=== PATIENT | male | born 1980 | race Two or more races ===

== ENCOUNTER → 2024-07-14 | Outpatient (CLI) | payer MEDICAID, SELFPAY ==
--- NOTE | 2024-07-14 09:30 | XR_ITS ---
Examination: CT abdomen, without intravenous contrast. CT abdomen, with intravenous contrast. Sagittal and coronal 2-D reconstructions. Time of exam:Thyroiditis 2024 0953 hours INDICATIONS: Right upper abdominal pain beginning one year ago CTDI: vol (mGy) 11.3 DLP: (mGycm) 367 Technique: Multiple 3.0 mm axial noncontrast images of the abdomen have been obtained. Multiple 3.0 mm axial images post administration 60 cc Isovue-370 intravenous contrast have been obtained. Sagittal and coronal 3-D reconstructions have been obtained. Low dose protocols were performed. One or more of the following dose reduction techniques were used; automated exposure control, adjustment of the mA and/or KV according to patient size, use of iterative reconstruction technique. Findings: Multiple low-density liver lesions again depicted consistent with cysts Significant patient motion No pancreatic or splenic mass No hydronephrosis Aorta normal size No ascites No bowel obstruction No gallstones IMPRESSION: Study limited by patient motion Recommend repeating the hepatic sonography to confirm liver cysts and to better assess the gallbladder No renal or ureteral calculi, no hydronephrosis
== END | disposition home or self-care (01) ==
LOC: CCTX 09:18
PROVIDERS: Referring Provider Physician Assistant; Visit Provider Physician Assistant
DX: N28.1 Cyst of kidney, acquired (principal)
CPT/HCPCS: 74170; A4649; Q9967

== ENCOUNTER → 2024-08-05 | Outpatient (CLI) | payer MEDICAID, SELFPAY ==
--- NOTE | 2024-08-05 09:45 | XR_ITS ---
Examination: MRI lumbar spine without contrast Date and time of exam: August 05, 2024 at 1043 hrs. Indications: Low back pain radiating down the right leg paresthesias 2 years Technique: Multiple MRI axial and sagittal sections lumbar spine. Sagittal T2-weighted images, TR 3500, TE 118 T1 weighted transverse sections, TR 688 T8.5, T2-weighted sagittal sections T1 weighted sagittal sections TR 621, TE 30 T2 axial sections, TR 4, 190, TE 84. Findings: Minimal anterolisthesis L3 on L2 No lumbar fracture Diffuse lumbar disc desiccation Mild to moderate diffuse lumbar disc narrowing most prominent L1-L2, L2-L3 L5-S1 no disc protrusion L4-L5 2 mm central lumbar disc bulge L3-L4 no disc protrusion L2-L3 3 mm central lumbar disc bulge L1-L2 2 mm central lumbar disc bulge No ganglionic compression Impression: Mild to moderate diffuse lumbar degenerative disc disease No significant acquired spinal stenosis
== END | disposition home or self-care (01) ==
PROVIDERS: PCP Physician Assistant; Referring Provider Physician Assistant; Visit Provider Physician Assistant
DX: M54.9 Dorsalgia, unspecified (principal); M51.369 Other intervertebral disc degeneration, lumbar region without mention of lumbar back pain or lower extremity pain
CPT/HCPCS: 72148

== ENCOUNTER 2024-09-01 13:00 | Outpatient (RCR) | payer MEDICAID, SELFPAY ==
--- NOTE | 2024-08-11 13:39 | PT.OIERPT ---
PT OP Initial Eval Patient Information Outpatient Physical Therapy Treatment Date: 08/11/24 Visit Reasons: dorsalgia Medical Diagnosis: M54.9 Treatment Dx #1: LBP with R LE radiculopathy Start of Care: 08/11/24 Date of Onset: 1.5 yrs ago Smoking Status Smoking Status: Current some day smoker Cessation Counseling Provided: LARRY was advised that quitting smoking is the single most important factor to protect the health of themselves and their family. Discussed the benefits of quitting smoking with patient. Encouraged patient to quit smoking and provided Cessation assistance materials and resources. Tobacco Use: Cigarette Years smoked: 25 Are you interested in quitting?: Yes Would you like additional Smoking Cessation Counseling?: No Initial Assessment Subjective: Pt is 44 yr old male c/o LBP that runs into the R LE. The R side hurts more than the L and the left side is where he had sx to remove a skin flap for craniotomy in 2020. The LBP limits sitting >20 mins, prolonged walking and lifting tolerances. PMH: L shoulder sx, craniotomy 2020 Imaging: MRI in EMR L4-L5 2 mm central lumbar disc bulge, L3-L4 no disc protrusion, L2-L3 3 mm central lumbar disc bulge ,L1-L2 2 mm central lumbar disc bulge, Pt goal: to get rid of the LBP Objective: Trunk ArOM: ? B SB 50% of normal with pain ? Extension: 20% with pain around L4-5, L5-S1 ? Flexion: 12 from floor with LBP ? B rotation: 60% with pain ? Tone: increased of R side paraspinals ? TTP: moderate paraspinals L2-S1 on R side ? Neuro: B SLR: negative Assessment: Pt presents with trunk flexion sensitivity and overlying myofascial pain ? and TTP around L3-S1 consistent with ? lower lumbar disc bulge(s) with radiculopathy. Pt requires skilled therapy in order to decrease ? pain and improve sitting/standing tolerance and has fair rehab potential. Eval ?followed by [facility] printout. [employer] Goals ??? 1. Ind with [facility] ? 2. Improved sitting/standing tolerance to 40 minutes with <=4/10 LBP ? 3. Decreased lower paraspinal TTP from mod to min 4. Improved HH chore tolerance to at least 30 minutes with <=3/10 LBP and no ?increase in LE ssx ? Treatment Plan ?1. Manual therapy ? 2. Therex ? 3. Modalities as indicated, moist heat, ice, estim, mechanical traction Frequency and Duration: 1-2x a week for 12 sessions plus evaluation Certification Dates: 08/11/24 to 11/11/24 Procedure Charges OP PT Eval Mod Complex 30 minutes: Yes
--- NOTE | 2024-08-18 13:10 | PT.ODAYNRPT ---
PT Outpatient Daily Note OP Daily Note Outpatient Physical Therapy Treatment Date: 08/18/24 Visit Reasons: dorsalgia Subjective: Same as time of evaluation Objective: See F/S for therex Assessment: Pt tends to round his back with most movements Plan: Continue per POC Length of Time (minutes) of Treatment: 30 Minutes Procedure Charges Therapeutic Exercise 30 minutes: Yes
--- NOTE | 2024-08-25 13:39 | PT.ODAYNRPT ---
PT Outpatient Daily Note OP Daily Note Outpatient Physical Therapy Treatment Date: 08/25/24 Visit Reasons: dorsalgia Subjective: Pt c/o R flank pain today Objective: See F/S for therex Assessment: Good abdominal/core activation with therex but Pt tends to round his back with most movements Plan: Continue per POC Length of Time (minutes) of Treatment: 30 Minutes
--- NOTE | 2024-09-01 14:06 | PT.ODAYNRPT ---
PT Outpatient Daily Note OP Daily Note Outpatient Physical Therapy Treatment Date: 09/01/24 Visit Reasons: dorsalgia Subjective: Pt c/o LBP and pain on his trunk. Objective: Please see flow sheet for ther ex list Assessment: Added interventions completed with minimal pain but pt determined to complete interventions. Plan: Continue with pOC. Length of Time (minutes) of Treatment: 30 Minutes Procedure Charges Therapeutic Exercise 30 minutes: Yes
== END 2024-09-06 23:59 | disposition home or self-care (01) ==
LOC: CPTX 13:00
PROVIDERS: PCP Physician Assistant; Referring Provider Physician Assistant; Visit Provider Physician Assistant
DX: M54.16 Radiculopathy, lumbar region (principal); Z71.6 Tobacco abuse counseling; F17.210 Nicotine dependence, cigarettes, uncomplicated
CPT/HCPCS: 97110; 97162

== ENCOUNTER 2024-09-29 09:30 | Outpatient (RCR) | payer MEDICAID, SELFPAY ==
--- NOTE | 2024-09-08 09:36 | PT.ODAYNRPT ---
PT Outpatient Daily Note OP Daily Note Outpatient Physical Therapy Treatment Date: 09/08/24 Visit Reasons: back pain Subjective: Pt c/o R flank pain Objective: See F/S for therex Assessment: Good abdominal/core activation with therex but Pt tends to round his back with most movements Plan: Continue per POC Length of Time (minutes) of Treatment: 30 Minutes Procedure Charges Therapeutic Exercise 30 minutes: Yes
--- NOTE | 2024-09-15 10:10 | PT.ODAYNRPT ---
PT Outpatient Daily Note OP Daily Note Outpatient Physical Therapy Treatment Date: 09/15/24 Visit Reasons: back pain Subjective: Pt c/o R flank pain Objective: See F/S for therex Assessment: Good abdominal/core activation with therex but Pt tends to round his back with most movements Plan: Continue per POC Length of Time (minutes) of Treatment: 30 Minutes Procedure Charges Therapeutic Exercise 30 minutes: Yes
--- NOTE | 2024-09-22 09:49 | PT.ODAYNRPT ---
PT Outpatient Daily Note OP Daily Note Outpatient Physical Therapy Treatment Date: 09/22/24 Visit Reasons: back pain Subjective: Pt c/o continued R flank pain Objective: See F/S for therex Assessment: Good abdominal/core activation with therex but Pt tends to round his back with most movements. Difficulty with bird dog exercise. Plan: Continue per POC Length of Time (minutes) of Treatment: 30 Minutes Procedure Charges Therapeutic Exercise 30 minutes: Yes
--- NOTE | 2024-09-29 10:06 | PT.ODAYNRPT ---
PT Outpatient Daily Note OP Daily Note Outpatient Physical Therapy Treatment Date: 09/29/24 Visit Reasons: back pain Subjective: Pt c/o continued R flank pain Objective: See F/S for therex Assessment: Good abdominal/core activation with therex but Pt tends to round his back with most movements. Difficulty with bird dog exercise. Plan: Continue per POC Length of Time (minutes) of Treatment: 30 Minutes Procedure Charges Therapeutic Exercise 30 minutes: Yes
== END 2024-10-06 23:59 | disposition home or self-care (01) ==
LOC: CPTX 09:30
PROVIDERS: PCP Physician Assistant; Referring Provider Physician Assistant; Visit Provider Physician Assistant
DX: M54.16 Radiculopathy, lumbar region (principal)
CPT/HCPCS: 97110

== ENCOUNTER 2024-11-03 08:30 | Outpatient (RCR) | payer MEDICAID, SELFPAY ==
--- NOTE | 2024-10-13 11:44 | PT.ODAYNRPT ---
PT Outpatient Daily Note OP Daily Note Outpatient Physical Therapy Treatment Date: 10/13/24 Visit Reasons: Low back pain Subjective: Pt reports neck has been stiff and painful for 4 days now, slept wrong and woke up with a stiff neck. Pt reports come progress with LBP. Objective: Please see flow sheet for ther ex list. Assessment: Pt instructed on bug exercise, pt demonstrated increase lumbar lordosis and poor abdominal recruitment. Pt instructed on PPT exercise then incorporated that into bugs exercise resulting in imporved technique. Plan: Continue with POC. Length of Time (minutes) of Treatment: 30 Minutes Procedure Charges Therapeutic Exercise 30 minutes: Yes
--- NOTE | 2024-10-27 09:01 | PT.ODAYNRPT ---
PT Outpatient Daily Note OP Daily Note Outpatient Physical Therapy Treatment Date: 10/27/24 Visit Reasons: Low back pain Subjective: Pt reports increase LBP on R side today. Objective: Please see flow sheet for ther ex list. Assessment: Added interventions completed with good tolerance. Plan: Continue with pOC. Length of Time (minutes) of Treatment: 30 Minutes Procedure Charges Therapeutic Exercise 30 minutes: Yes
--- NOTE | 2024-11-03 10:22 | PT.ODAYNRPT ---
PT Outpatient Daily Note OP Daily Note Outpatient Physical Therapy Treatment Date: 11/03/24 Visit Reasons: Low back pain Subjective: Pt reports increased LBP on R side today. Objective: See F/S for therex TENS: x7' R side of L/S Assessment: Good response to repeated prone lumbar extension to relieve pain but he tends to round the L/S which may aggravate ssx. Plan: Continue per POC Length of Time (minutes) of Treatment: 30 Minutes Procedure Charges Therapeutic Exercise 30 minutes: Yes
== END 2024-11-06 23:59 | disposition home or self-care (01) ==
LOC: CPTX 08:30
PROVIDERS: PCP Physician Assistant; Referring Provider Physician Assistant; Visit Provider Physician Assistant
DX: M54.16 Radiculopathy, lumbar region (principal)
CPT/HCPCS: 97110

== ENCOUNTER 2024-11-15 08:30 | Outpatient (RCR) | payer MEDICAID, SELFPAY ==
--- NOTE | 2024-11-08 14:39 | PT.ODAYNRPT ---
PT Outpatient Daily Note OP Daily Note Outpatient Physical Therapy Treatment Date: 11/08/24 Visit Reasons: low back pain Subjective: Pt reports increased LBP on R side today. Objective: See F/S for therex Assessment: Good response to repeated prone lumbar extension to relieve pain but he tends to round the L/S which may aggravate ssx. Plan: Reassess Length of Time (minutes) of Treatment: 30 Minutes Procedure Charges Therapeutic Exercise 30 minutes: Yes
--- NOTE | 2024-11-15 11:45 | PT.ODS1RPT ---
PT OP Progress/Discharge Note Date of Service: 11/15/24 Progress Note/DC Note Progress Note/Discharge Note: DC Note Patient Information Visit Reasons: low back pain Service Continue Service or Discharge: Discharge Discharge Date: 11/15/24 Status Subjective: Pt reports less pain with therapy visits. He is doing HH chores, standing and sitting for 60 minutes Objective: Trunk AROM: FB: 5 from floor Extension: full B rotation: full TTP: min of lumbar paraspinals Assessment: Pt has attended 12/ Rx sessions with good progress to meet therapy goals. He can sit/walk/HH chores for 60 mins with min LBP to meet those goals and the back is less TTP. Plan: D/C with [facility] Procedure Charges Therapeutic Exercise 30 minutes: Yes
== END 2024-12-06 23:59 | disposition home or self-care (01) ==
LOC: CPTX 08:30
PROVIDERS: PCP Physician Assistant; Referring Provider Physician Assistant; Visit Provider Physician Assistant
DX: M54.16 Radiculopathy, lumbar region (principal); R26.2 Difficulty in walking, not elsewhere classified
CPT/HCPCS: 97110

== ENCOUNTER → 2025-01-27 | Outpatient (CLI) | payer MEDICAID, SELFPAY ==
--- NOTE | 2025-01-27 09:30 | XR_ITS ---
Examination: CT abdomen, without intravenous contrast. CT abdomen, with intravenous contrast. Sagittal and coronal 2-D reconstructions. Time of exam:January 27, 2025 0948 hours, comparison July 14, 2024 INDICATIONS: History renal cystic disease CTDI: vol (mGy) 11.4 DLP: (mGycm) 473 Technique: Multiple 3.0 mm axial noncontrast images of the abdomen have been obtained. Multiple 3.0 mm axial images post administration 60 cc Isovue-370 intravenous contrast have been obtained. Sagittal and coronal 3-D reconstructions have been obtained. Low dose protocols were performed. One or more of the following dose reduction techniques were used; automated exposure control, adjustment of the mA and/or KV according to patient size, use of iterative reconstruction technique. Findings: Multiple minute liver cysts No gallstones Spleen not enlarged No pancreatic mass Subcentimeter bilateral renal cysts No renal or ureteral calculi, no hydronephrosis Aorta normal size Normal appendix No bowel obstruction IMPRESSION: Recommend abdominal sonography follow-up to confirm benign liver and renal cysts
== END | disposition home or self-care (01) ==
LOC: CCTX 08:56
PROVIDERS: PCP Physician Assistant; Referring Provider Physician Assistant; Visit Provider Physician Assistant
DX: N28.1 Cyst of kidney, acquired (principal)
CPT/HCPCS: 74170; A4649; Q9967